=== PATIENT | male | born 1960 | race African-American/Black ===

== ENCOUNTER 2025-07-07 08:56 | Inpatient (IN) | payer MEDICARE, OTHER ==
[~2025-07-07] VITALS: Ht 188 cm; Wt 96.2 kg
[2025-07-07 09:01] VITALS: O2SAT 99
[2025-07-07 09:39] LABS: BASOPHILS % 0.5 % (0.0-2.0); EOSINOPHILS % 1.7 % (0.0-5.0); HEMATOCRIT. 38.7 % (42.0-52.0); HEMOGLOBIN. 12.8 g/dL (14.0-18.0); LYMPHOCYTES % 15.8 % (20.0-50.0); MEAN PLATELET VOLUME 8.6 fl (7.4-10.4); MONOCYTES % 8.7 % (2.0-8.0); NEUTROPHILS % 73.3 % (40.0-76.0); PLATELET 202 x1000/uL (130-400); RED BLOOD CELL COUNT 4.31 mill/uL (4.7-6.1); RED CELL DISTRIBUTION WIDTH 13.7 % (11.6-14.6)
[2025-07-07 09:57] LABS: CREATININE 0.9 mg/dL (0.6-1.3); UREA NITROGEN BLOOD 7 mg/dL (9-23)
[2025-07-07 12:34] LABS: CLARITY URINE CLEAR (CLEAR); COLOR URINE YELLOW (YELLOW); GLUCOSE URINE NEGATIVE (NEGATIVE); KETONES URINE NEGATIVE (NEGATIVE); LEUKOCYTE ESTERASE URINE TRACE (NEGATIVE); NITRITE URINE NEGATIVE (NEGATIVE); OCCULT BLOOD URINE NEGATIVE (NEGATIVE); PH URINE 5.5 (4.5-8.0); PROTEIN URINE NEGATIVE (NEGATIVE); SPECIFIC GRAVITY URINE 1.012 (1.005-1.030); UROBILINOGEN URINE 1.0 E.U./dL (0.2-1.0)
[2025-07-07 12:46] LABS: SQUAMOUS EPITHELIAL CELL URINE FEW /lpf (RARE/1+)
[2025-07-07 12:47] LABS: BACTERIA URINE TRACE; HYALINE CASTS URINE 0-5 /lpf; RBC URINE NONE SEEN /hpf (0-2)
[2025-07-07 12:56] LABS: *AMPHETAMINES SCREEN URINE NEGATIVE (NEGATIVE); *BARBITURATES SCREEN URINE NEGATIVE (NEGATIVE); *BENZODIAZEPINES SCREEN URINE NEGATIVE (NEGATIVE)
[2025-07-07 12:57] LABS: *COCAINE SCREEN URINE NEGATIVE (NEGATIVE); CANNABINOID URINE SCREEN NEGATIVE (NEGATIVE); ECSTASY MDMA SCREEN URINE NEGATIVE (NEGATIVE); METHADONE URINE SCREEN NEGATIVE (NEGATIVE); OPIATES URINE SCREEN NEGATIVE (NEGATIVE); PHENCYCLIDINE URINE SCREEN NEGATIVE (NEGATIVE)
[2025-07-07] MEDS ORDERED: IPRATROPIUM/ALBUTEROL 0.5-3(2.5)MG/3ML NEB HHN PRN (15:15)
[2025-07-07] MEDS ORDERED: CLONIDINE 0.1MG TABLET PO PRN (15:15)
[2025-07-07] MEDS ORDERED: ACETAMINOPHEN 325MG TABLET PO PRN ×2 (15:15)
[2025-07-07] MEDS ORDERED: ONDANSETRON HCL 4MG/2ML INJ IV PRN (15:15)
[2025-07-07] MEDS: CEFTRIAXONE 1GM/50ML 50 ML IV ONE (15:42)
[2025-07-07 17:05] VITALS: BP 146/74; PULSE 60; RESP 19; TEMP 36.5; O2SAT 100
[2025-07-07 17:13] VITALS: BP 146/74; PULSE 60; RESP 19; TEMP 36.5292
[2025-07-07 18:52] LABS: ASPARTATE AMINOTRANSFERASE 39 IU/L (<34)
[2025-07-07 18:53] LABS: BILIRUBIN DIRECT 0.2 mg/dL (<=3.0); BILIRUBIN TOTAL 0.4 mg/dL (0.1-1.0); PROTEIN TOTAL 7.6 g/dL (6.0-8.3)
[2025-07-07 18:56] LABS: INR 1.0
[2025-07-07 20:00] VITALS: BP 124/82; PULSE 97; RESP 20; TEMP 36.2; O2SAT 99
[2025-07-07] MEDS: DONEPEZIL HCL 5MG TABLET PO SCH (21:01)
[2025-07-07 22:39] LABS: TROPONIN I HIGH SENSITIVITY 5 ng/L (3.0-53)
[2025-07-08] VITALS: BP 128/75; PULSE 65; RESP 20; TEMP 35.8; O2SAT 98
[2025-07-08 04:00] VITALS: BP 131/69; PULSE 55; RESP 20; TEMP 36.6; O2SAT 98
[2025-07-08] MEDS: PANTOPRAZOLE 40MG DR TABLET PO SCH (06:40)
[2025-07-08] MEDS: FERROUS SULFATE 325MG TABLET PO SCH (07:25)
[2025-07-08 08:00] VITALS: BP 117/70; PULSE 64; RESP 18; TEMP 36.7; O2SAT 100
[2025-07-08] MEDS: AMLODIPINE 5MG TABLET PO SCH (08:50)
[2025-07-08 12:00] VITALS: BP 120/68; PULSE 61; RESP 19; TEMP 36.5; O2SAT 100
[2025-07-08] MEDS: ENOXAPARIN 40MG/0.4ML SYR SUBCUT SCH (12:53)
[2025-07-08 16:00] VITALS: BP 115/65; PULSE 100; RESP 18; TEMP 36.6; O2SAT 100
[2025-07-08 20:00] VITALS: BP 115/72; PULSE 69; RESP 16; TEMP 36.7; O2SAT 98
[2025-07-09 08:00] VITALS: RESP 16
[2025-07-09 11:17] VITALS: BP 139/68; PULSE 71; RESP 18; TEMP 36.4
[2025-07-09 12:30] VITALS: BP 125/84; PULSE 110; RESP 18; TEMP 36.6; O2SAT 97
[2025-07-09 16:00] VITALS: BP 114/65; PULSE 90; RESP 17; TEMP 36.6; O2SAT 98
[2025-07-09 20:00] VITALS: BP 122/67; PULSE 77; RESP 18; TEMP 36.5; O2SAT 100
[2025-07-10] VITALS: BP 131/77; PULSE 63; RESP 18; TEMP 36.5; O2SAT 99
[2025-07-10 04:00] VITALS: BP 125/71; PULSE 55; RESP 17; TEMP 36.6; O2SAT 99
[2025-07-10 12:00] VITALS: BP 115/77; PULSE 94; RESP 20; TEMP 35.9; O2SAT 100
[2025-07-10 16:00] VITALS: BP 165/95; PULSE 90; RESP 18; TEMP 35.7; O2SAT 95
[2025-07-10 17:15] LABS: BASOPHILS % 0.2 % (0.0-2.0); EOSINOPHILS % 0.8 % (0.0-5.0); HEMATOCRIT. 42.4 % (42.0-52.0); HEMOGLOBIN. 13.9 g/dL (14.0-18.0); LYMPHOCYTES % 11.3 % (20.0-50.0); MEAN PLATELET VOLUME 9.2 fl (7.4-10.4); MONOCYTES % 5.9 % (2.0-8.0); NEUTROPHILS % 81.8 % (40.0-76.0); PLATELET 210 x1000/uL (130-400); RED BLOOD CELL COUNT 4.70 mill/uL (4.7-6.1); RED CELL DISTRIBUTION WIDTH 13.6 % (11.6-14.6)
[2025-07-10 17:33] LABS: CREATININE 1.0 mg/dL (0.6-1.3)
[2025-07-10 17:35] LABS: UREA NITROGEN BLOOD 8 mg/dL (9-23)
[2025-07-10 17:36] LABS: PHOSPHORUS 2.9 mg/dL (2.5-4.9)
[2025-07-10 20:00] VITALS: BP 132/76; PULSE 74; RESP 19; TEMP 36.5; O2SAT 100
[2025-07-11] VITALS: BP 140/81; PULSE 68; RESP 19; TEMP 36; O2SAT 99
[2025-07-11 04:00] VITALS: BP 118/68; PULSE 66; RESP 19; TEMP 36.6; O2SAT 100
[2025-07-11 08:00] VITALS: BP 115/68; PULSE 61; RESP 16; TEMP 36.3; O2SAT 99
[2025-07-11 12:00] VITALS: BP 118/70; PULSE 60; RESP 16; TEMP 36.6; O2SAT 99
[2025-07-11 20:00] VITALS: BP 117/75; PULSE 80; RESP 18; TEMP 36.7; O2SAT 100
[2025-07-12] VITALS: BP 125/71; PULSE 62; RESP 18; TEMP 35.7; O2SAT 100
[2025-07-12 04:00] VITALS: BP 145/99; PULSE 80; RESP 18; TEMP 36.5; O2SAT 96
[2025-07-12 08:00] VITALS: BP 140/90; PULSE 78; RESP 17; TEMP 36.5; O2SAT 97
[2025-07-12 12:00] VITALS: BP 131/82; PULSE 75; RESP 17; TEMP 36.4; O2SAT 97
[2025-07-12 16:00] VITALS: BP 137/88; PULSE 75; RESP 18; TEMP 36.4; O2SAT 97
[2025-07-12 20:00] VITALS: BP 135/72; PULSE 73; RESP 18; TEMP 36.3; O2SAT 98
[2025-07-13] VITALS: BP 137/49; PULSE 68; RESP 17; TEMP 36.4; O2SAT 98
[2025-07-13 04:00] VITALS: BP 135/86; PULSE 63; RESP 18; TEMP 36.3; O2SAT 100
[2025-07-13 08:00] VITALS: BP 119/72; PULSE 63; RESP 17; TEMP 36.2; O2SAT 99
[2025-07-13] MEDS: FAMOTIDINE 20MG TABLET PO SCH (08:54)
[2025-07-13 16:00] VITALS: BP 138/88; PULSE 66; RESP 18; TEMP 36.3; O2SAT 99
[2025-07-14 08:00] VITALS: BP 110/75; PULSE 79; RESP 18; TEMP 36.5; O2SAT 100
[2025-07-14] MEDS ORDERED: AMLO5TAB88 PO (14:40)
[2025-07-14] MEDS ORDERED: DONE5TAB7 PO (14:40)
[2025-07-14 16:00] VITALS: BP 120/75; PULSE 72; RESP 18; TEMP 36.4; O2SAT 99
[2025-07-14] MEDS: LORAZEPAM 0.5MG TABLET PO SCH (16:45)
[2025-07-14 17:43] VITALS: BP 120/75; PULSE 72; RESP 18; TEMP 97.5
== END 2025-07-14 19:39 | DRG 638 ==
LOC: ER 08:56 → 8WST 14:12 → EDBEDREQ 14:16 → EDBEDREQTM 14:16 → ENRESERV 15:36 → 7EST 07-10 12:26
PROVIDERS: ADMIT Internal Medicine; ATTEND Internal Medicine
DX: E11.65 Type 2 diabetes mellitus with hyperglycemia (principal); F03.918 Unspecified dementia, unspecified severity, with other behavioral disturbance; Z59.00 Homelessness unspecified; F03.92 Unspecified dementia, unspecified severity, with psychotic disturbance; Z20.822 Contact with and (suspected) exposure to COVID-19; I10 Essential (primary) hypertension; D64.9 Anemia, unspecified; Z79.899 Other long term (current) drug therapy
CPT/HCPCS: 36415; 80048; 80076; 80305; 80307; 80320; 80329; 81003; 82140; 82728; 82962; 83036; 83540; 83550; 83735; 84100; 84484; 85025; 86850; 86900; 87426; 97161; 97166; 99285; A4606; J0696; J1650; G0480